=== PATIENT | female | born 1980 | race African-American/Black ===

== ENCOUNTER 2016-05-06 19:22 | Emergency (ER) | payer OTHER ==
[~2016-05-06 19:22] MED LIST: ALBUTEROL20 ml INH; TYLENOL325 M1 PO
== END 2016-05-06 19:32 | disposition home or self-care (01) ==
LOC: CFTX 19:22
DX: G56.02 Carpal tunnel syndrome, left upper limb (principal); J45.909 Unspecified asthma, uncomplicated; F17.210 Nicotine dependence, cigarettes, uncomplicated
CPT/HCPCS: 29125; 99283